=== PATIENT | male | born 1990 | race Caucasian/White ===

== ENCOUNTER 2022-02-02 19:44 | Emergency (ER) | payer OTHER ==
[2022-02-02 19:51] VITALS: RESP 16
--- NOTE | 2022-02-02 20:21 | ED ---
General Adult HPI - General Chief complaint: Alcohol Stated complaint: Mental Health Time Seen by Provider: 02/02/22 19:54 Source: patient, EMS Mode of arrival: EMS Limitations: no limitations - History of Present Illness Initial comments: Dictation was produced using [employer] dictation software. please excuse any grammatical, word or spelling errors. Chief Complaint: 31-year-old male presents emergency department for alcohol intoxication suicidal ideation History of Present Illness: 31-year-old male who is unreliable historian. P hugo is inebriated. Patient admits to drinking multiple alcoholic beverages today. Patient called friend and stated to him or her that he is suicidal. Patient states that he's been suicidal since he was 12 years old. The ROS documented in this emergency department record has been reviewed and confirmed by me. Those systems with pertinent positive or negative responses have been documented in the HPI. All other systems are other negative and/or noncontributory. PHYSICAL EXAM: General Impression: Alert and oriented x3, not in acute distress HEENT: Normocephalic atraumatic, extra-ocular movements intact, pupils equal and reactive to light bilaterally, mucous membranes moist. Cardiovascular: Heart regular rate and rhythm Chest: Able to complete full sentences, no retractions, no tachypnea Abdomen: abdomen soft, non-tender, non-distended, no organomegaly Musculoskeletal: Pulses present and equal in all extremities, no peripheral edema Motor: no focal deficits noted Neurological: CN II-XII grossly intact, no focal motor or sensory deficits noted Skin: Intact with no visualized rashes Psych: Normal affect and mood ED course: 31-year-old male presents to the emergency department for alcohol intoxication suicidal ideation. Vital signs upon arrival shows heart rate of 104, rest of vital signs within acceptable limits. Patient pending sobriety for EPS evaluation. Patient was evaluated by EPS and discharged patient. - Related Data Allergies Allergy/AdvReac Type Severity Reaction Status Date / Time No Known Allergies Allergy Verified 02/02/22 21:54 Review of Systems ROS Statement: Those systems with pertinent positive or pertinent negative responses have been documented in the HPI. ROS Other: All systems not noted in ROS Statement are negative. General Exam Limitations: no limitations Course Vital Signs 02/02/22 02/03/22 19:44 06:11 Temperature 97.7 F 98.4 F Pulse Rate 104 H 65 Respiratory 16 16 Rate Blood Pressure 148/97 113/71 O2 Sat by Pulse 96 94 L Oximetry Disposition Clinical Impression: Alcoholic intoxication Disposition: HOME SELF-CARE Instructions (If sedation given, give patient instructions): Alcohol Intoxication (ED) Is patient prescribed a controlled substance at d/c from ED?: No Referrals: None,Stated [Primary Care Provider] - 1-2 days
[2022-02-03] MEDS ORDERED: NICOTINE 14MG/24HR PATCH TRANSDERM STA (01:50)
[2022-02-03 06:11] VITALS: BP 113/71; PULSE 65; TEMP 98.4
== END 2022-02-03 06:25 | disposition home or self-care (01) ==
LOC: EC 19:44
DX: F10.129 Alcohol abuse with intoxication, unspecified (principal); R45.851 Suicidal ideations
CPT/HCPCS: 99284; S4990